=== PATIENT | female | born 1960 | race Caucasian/White ===

== ENCOUNTER → 2016-08-30 | Outpatient (CLI) | payer OTHER ==
[2016-07-20 10:35] VITALS: BP 140/60
[~2016-08-30] MED LIST: BIOT1CAP3 PO; CEPH-264 PO; ESTR42.53 VG; MV,C1TAB19 PO; OXYB5TAB33 PO; OXYC-323 PO; TAMS0.4C97 PO; TIMO5DRO26 LEFTEYE; TURM500C7 PO
--- NOTE | 2016-08-30 16:42 | KCIC ---
PROCEDURE Renal ultrasound HISTORY Kidney stone follow-up COMPARISON None available FINDINGS Multiple sonographic images of the kidneys and urinary bladder submitted. Right kidney measured 12.7 x 5.2 x 4.8 centimeters. Left kidney measured 13.3 x 4.9 x 4.7 centimeters. Ureteral jets are not seen in the urinary bladder lumen during exam. No definitive renal calculi are demonstrated by ultrasound. There is lobulation of both kidneys. There is right extrarenal pelvis, no significant hydronephrosis. IMPRESSION 1. There is no hydronephrosis of either kidney, right extrarenal pelvis present. Electronically signed by: Sumit Esquivel MD (Aug 30, 2016 16:40:30)
== END | disposition home or self-care (01) ==
LOC: KCIC US 15:56
PROVIDERS: ATTEND Nurse Practitioner Occupational Health
DX: N20.0 Calculus of kidney (principal)
CPT/HCPCS: 76770